=== PATIENT | male | born 1970 | race Caucasian/White ===

== ENCOUNTER → 2017-01-06 | Outpatient (CLI) | payer MEDICARE ==
[~2017-01-06] MED LIST: GADOBUTROL 10 MMOL/10 ML PFS ONE
== END | disposition home or self-care (01) ==
LOC: CFH 14:05
PROVIDERS: ATTEND Physician Assistant Surgical
DX: M51.37 Other intervertebral disc degeneration, lumbosacral region (principal); M47.897 Other spondylosis, lumbosacral region
CPT/HCPCS: 73721; A9585

== ENCOUNTER 2017-11-12 22:12 | Inpatient (IN) | payer MEDICARE ==
[~2017-11-12] VITALS: Ht 175.3 cm; Wt 65.0 kg
[2017-11-12] MEDS ORDERED: ONDANSETRON ODT 4 MG PO ONE (23:00)
[2017-11-12] MEDS ORDERED: LORazepam 1MG TABLET PO ONE (23:00)
[2017-11-12 23:06] LABS: BASOPHILS # (AUTO) 0.01 x10^3/uL (0-0.1); BASOPHILS % (AUTO) 0 % (0-1); EOSINOPHILS # (AUTO) 0.16 x10^3/uL (0-0.4); EOSINOPHILS % (AUTO) 2 % (1-7); LYMPHOCYTES # (AUTO) 1.32 x10^3/uL (1-3.4); LYMPHOCYTES % (AUTO) 16 % (22-44); MD NO; MEAN CORPUSCULAR HEMOGLOBIN 30.7 pg (27.5-34.5); MEAN CORPUSCULAR HGB CONC 33.7 g/dL (33.2-36.2); MEAN CORPUSCULAR VOLUME 91.2 fL (81-97); MEAN PLATELET VOLUME 8.8 fL (7.4-10.4); MONOCYTES # (AUTO) 0.73 x10^3/uL (0.2-0.8); MONOCYTES % (AUTO) 9 % (2-9); NEUTROPHILS # (AUTO) 6.05 x10^3/uL (1.8-6.8); NEUTROPHILS % (AUTO) 73 % (42-75); PLATELET COUNT 186 x10^3/uL (130-400); RED BLOOD COUNT 4.69 x10^6/uL (4.38-5.82); RED CELL DISTRIBUTION WIDTH 14.1 % (9.4-14.8)
[2017-11-12 23:17] LABS: ALANINE AMINOTRANSFERASE 75 U/L (12-78); ALBUMIN 3.4 g/dL (3.4-5.0); ANION GAP 5 mmol/L (5-15); CALCIUM 8.8 mg/dL (8.5-10.1); CHLORIDE 105 mmol/L (98-107); CREATININE 1.29 mg/dL (0.7-1.3)
[2017-11-12 23:19] LABS: ALKALINE PHOSPHATASE 62 U/L (45-117); BILIRUBIN,TOTAL 0.3 mg/dL (0.2-1.0); SALICYLATE LEVEL < 1.7 mg/dL (2.8-20.0); TOTAL PROTEIN 7.1 g/dL (6.4-8.2)
[2017-11-12 23:20] LABS: ACETAMINOPHEN < 2 mcg/mL (10-30)
[2017-11-12 23:23] LABS: AMPHETAMINE SCREEN, URINE Positive (Negative); BARBITURATE SCREEN, URINE Negative (Negative); BENZODIAZEPINE SCREEN, URINE Negative (Negative); CANNABINOID SCREEN, URINE Positive (Negative); COCAINE SCREEN, URINE Negative (Negative); METHADONE SCREEN, URINE Negative (Negative); OPIATE SCREEN, URINE Positive (Negative)
[2017-11-12] MEDS ORDERED: ONDANSETRON ODT 4 MG ONE (23:52)
[2017-11-12] MEDS ORDERED: LORazepam 1MG TABLET ONE (23:53)
[2017-11-13] MEDS ORDERED: LORazepam 1MG TABLET ONE (04:14)
[2017-11-13] MEDS ORDERED: LORazepam 1MG TABLET PO ONE (04:30)
[2017-11-13] MEDS ORDERED: ZIPRASIDONE 20 MG INJ IM ONE ×2 (14:51→15:00)
[2017-11-13] MEDS ORDERED: ONDANSETRON 2MG/ML, 2ML IVPush PRN (15:30)
[2017-11-13] MEDS ORDERED: HEPARIN 5,000 UNITS/ML, 1ML ONE (16:06)
[2017-11-13] MEDS: HEPARIN 5,000 UNITS/ML, 1ML SQ SCH (16:11)
[2017-11-13 19:55] VITALS: BP 100/64
[2017-11-13] MEDS: LORazepam 1MG TABLET PO PRN (22:07)
[2017-11-13] MEDS: HYDROcodone/APAP 5/325 TABLET PO PRN (22:07)
[2017-11-13 22:27] VITALS: BP 100/64
[2017-11-14 00:31] VITALS: BP 103/67
[2017-11-14] MEDS: HYDROcodone/APAP 5/325 TABLET PO PRN ×2 (03:13→09:18)
[2017-11-14] MEDS: LORazepam 1MG TABLET PO PRN ×4 (03:13→19:57)
[2017-11-14] MEDS: HEPARIN 5,000 UNITS/ML, 1ML SQ SCH ×3 (05:00→20:59)
[2017-11-14 05:15] LABS: BASOPHILS # (AUTO) 0.02 x10^3/uL (0-0.1); BASOPHILS % (AUTO) 0 % (0-1); EOSINOPHILS # (AUTO) 0.11 x10^3/uL (0-0.4); EOSINOPHILS % (AUTO) 2 % (1-7); LYMPHOCYTES # (AUTO) 1.28 x10^3/uL (1-3.4); LYMPHOCYTES % (AUTO) 21 % (22-44); MD NO; MEAN CORPUSCULAR HEMOGLOBIN 30.6 pg (27.5-34.5); MEAN CORPUSCULAR HGB CONC 33.9 g/dL (33.2-36.2); MEAN CORPUSCULAR VOLUME 90.3 fL (81-97); MEAN PLATELET VOLUME 8.8 fL (7.4-10.4); MONOCYTES # (AUTO) 0.56 x10^3/uL (0.2-0.8); MONOCYTES % (AUTO) 9 % (2-9); NEUTROPHILS # (AUTO) 4.27 x10^3/uL (1.8-6.8); NEUTROPHILS % (AUTO) 69 % (42-75); PLATELET COUNT 209 x10^3/uL (130-400); RED BLOOD COUNT 4.92 x10^6/uL (4.38-5.82); RED CELL DISTRIBUTION WIDTH 14.1 % (9.4-14.8)
[2017-11-14 05:20] LABS: CHLORIDE 107 mmol/L (98-107)
[2017-11-14 05:27] LABS: ANION GAP 8 mmol/L (5-15); CALCIUM 9.7 mg/dL (8.5-10.1); CREATININE 0.93 mg/dL (0.7-1.3)
[2017-11-14 06:46] VITALS: BP 105/70
[2017-11-14] MEDS ORDERED: ZIPRASIDONE 20 MG INJ IM ONE ×3 (12:25→21:30)
[2017-11-14] MEDS: NICOTINE 14MG/24 HR PATCH.TD24 TD SCH (12:30)
[2017-11-14] MEDS ORDERED: METHADONE 5 MG TABLET ONE (16:01)
[2017-11-14] MEDS ORDERED: METHADONE 5 MG TABLET PO PRN (16:30)
[2017-11-14 19:45] VITALS: BP 109/78
[2017-11-14] MEDS: METHADONE 5 MG TABLET PO SCH (20:58)
[2017-11-14] MEDS ORDERED: DIPHENHYDRAMINE 25 MG CAPSULE PO ONE (21:00)
[2017-11-15 01:22] VITALS: BP 101/72
[2017-11-15] MEDS: HEPARIN 5,000 UNITS/ML, 1ML SQ SCH ×3 (05:00→20:09)
[2017-11-15] MEDS: LORazepam 1MG TABLET PO PRN (05:53)
[2017-11-15] MEDS: METHADONE 5 MG TABLET PO SCH (07:59)
[2017-11-15 08:15] VITALS: BP 96/63
[2017-11-15 09:00] VITALS: BP_SYST 77
[2017-11-15] MEDS: LORazepam 1MG TABLET PO SCH ×4 (10:08→22:06)
[2017-11-15] MEDS: NICOTINE 14MG/24 HR PATCH.TD24 TD SCH (12:30)
[2017-11-15 13:00] VITALS: BP 104/70
[2017-11-15 19:10] VITALS: BP 95/57
[2017-11-15] MEDS: METHADONE 10 MG TABLET PO SCH (20:09)
[2017-11-15] MEDS: ZIPRASIDONE 20 MG INJ IM PRN (21:05)
[2017-11-16 02:06] VITALS: BP 113/70
[2017-11-16] MEDS: LORazepam 1MG TABLET PO SCH ×6 (02:11→21:59)
[2017-11-16] MEDS: HEPARIN 5,000 UNITS/ML, 1ML SQ SCH ×4 (03:12→21:00)
[2017-11-16] MEDS: METHADONE 10 MG TABLET PO SCH ×2 (08:44→20:59)
[2017-11-16 08:48] VITALS: BP 111/74
[2017-11-16] MEDS: NICOTINE 14MG/24 HR PATCH.TD24 TD SCH (12:30)
[2017-11-16] MEDS: ZIPRASIDONE 20 MG INJ IM PRN (16:44)
[2017-11-16 19:06] VITALS: BP 103/70
[2017-11-16] MEDS ORDERED: DIPHENHYDRAMINE 25 MG CAPSULE PO PRN (22:30)
[2017-11-17 01:02] VITALS: BP 117/82
[2017-11-17] MEDS: LORazepam 1MG TABLET PO SCH ×5 (01:57→17:45)
[2017-11-17] MEDS: HEPARIN 5,000 UNITS/ML, 1ML SQ SCH ×2 (06:00→13:00)
[2017-11-17 07:47] VITALS: BP 102/52
[2017-11-17] MEDS: METHADONE 10 MG TABLET PO SCH (09:17)
[2017-11-17] MEDS: NICOTINE 14MG/24 HR PATCH.TD24 TD SCH ×2 (12:30→15:23)
[2017-11-17 14:05] VITALS: BP 97/69
== END 2017-11-17 17:50 | disposition home or self-care (01) | DRG 897 ==
LOC: ED 23:53 → MERGE 23:53 → EDIP 11-13 14:51 → OBSVTOIN 11-13 14:51 → 3NE 11-13 17:19
PROVIDERS: ADMIT Internal Medicine; ATTEND Internal Medicine
DX: F11.23 Opioid dependence with withdrawal (principal); R45.851 Suicidal ideations; F43.10 Post-traumatic stress disorder, unspecified; F25.9 Schizoaffective disorder, unspecified; Z91.5 Personal history of self-harm
CPT/HCPCS: 36415; 80048; 80053; 80307; 80329; 85025; 93005; J1644; J3486; Q0162; G0480; Q0163

== ENCOUNTER 2017-12-09 11:38 | Emergency (ER) | payer MEDICARE ==
[~2017-12-09] VITALS: Ht 175.3 cm; Wt 66.8 kg
[2017-12-09 11:40] VITALS: BP 124/79
== END 2017-12-09 12:54 | disposition home or self-care (01) ==
LOC: ED 12:00
DX: L02.413 Cutaneous abscess of right upper limb (principal); Z86.19 Personal history of other infectious and parasitic diseases; F17.200 Nicotine dependence, unspecified, uncomplicated
CPT/HCPCS: 10060; 99283

== ENCOUNTER 2017-12-11 10:20 | Emergency (ER) | payer MEDICARE ==
[~2017-12-11] VITALS: Ht 175.3 cm; Wt 66.4 kg
[2017-12-11 10:41] VITALS: BP 109/70
== END 2017-12-11 11:19 | disposition home or self-care (01) ==
LOC: ED 10:53
DX: L02.413 Cutaneous abscess of right upper limb (principal); Z86.19 Personal history of other infectious and parasitic diseases
CPT/HCPCS: 99281